=== PATIENT | female | born 1950 | race Caucasian/White ===

== ENCOUNTER → 2018-06-10 | Outpatient (CLI) | payer BC, MEDICARE ==
[~2018-06-10] MED LIST: ASPIR 8181 MG PO; ATORVASTATIN CA20 MG PO; BENEFIBER240 GM PO; CALCIUM CITRAT1 EAC3 PO; DITROPAN XL10 MG PO; HYDROCHLOROTHIA25 MG PO; LORATADINE10 M1 PO; MACROBID 100 M100 MG PO; OTC ALLERGY PO; PANTOPRAZOLE SO40 MG PO; UROCIT-K10 MEQ PO; UROCIT-K5 MEQ PO; VITAMIN D PO
--- NOTE | 2018-06-10 12:31 | Diagnostic Imaging Report ---
PROCEDURE:X-RAY ABDOMEN - KUB COMPARISON:None. INDICATIONS:CALCULUS OF KIDNEY FINDINGS: One view of the abdomen (AP supine). No dilated loops of bowel or abnormal air-fluid levels patterns. No free air underneath the diaphragm. Visualized portions of the lung bases are clear. At least 2 calcifications are projected over the lower pole of the right kidney, measuring up to 4 mm. A 4 mm calcification is projected over the left kidney. Pelvic phleboliths are identified. Five non-rib bearing lumbar type vertebral bodies identified. CONCLUSION: Small calcifications are projected over each kidney, measuring up to about 4 mm. Dictated by: Moose Burns M.D. on 06/10/2018 at 12:38 Electronically approved by: Moose Burns M.D. on 06/10/2018 at 12:38
== END ==
LOC: RAD 11:43
PROVIDERS: ATTEND Urology
DX: N20.0 Calculus of kidney (principal)
CPT/HCPCS: 74018

== ENCOUNTER → 2019-01-15 | Outpatient (CLI) | payer BC, MEDICARE ==
--- NOTE | 2019-01-15 14:58 | Diagnostic Imaging Report ---
Abdomen, 1 view. History: Renal calculus. Comparison: 06/10/2018. Findings: Two 3 mm calcific densities are projected over the lower pole of the right kidney without significant change. Calcified phleboliths in the pelvis laterally are unchanged in appearance. Air is scattered throughout nondilated small and large bowel. Cholecystectomy clips are present. There are no masses. The osseous structures are intact. IMPRESSION: Non-specific bowel gas pattern. No significant change. Signed by: Bao Self on 01/15/2019 2:54 PM
== END ==
LOC: RAD 13:55
DX: N20.0 Calculus of kidney (principal)
CPT/HCPCS: 74018

== ENCOUNTER → 2019-05-21 | Day surgery (SDC) | payer MEDICARE ==
[2019-05-17 16:50] LABS: BASOPHILS % 0.4 % (0.0-1.0); EOSINOPHILS # (AUTO) 0.1 (0.0-0.4); EOSINOPHILS % 1.3 % (0.0-6.0); HEMATOCRIT 39.9 % (34.2-44.1); HEMOGLOBIN 13.4 g/dL (12.0-16.0); LYMPHOCYTES # (AUTO) 1.1 (1.0-3.2); LYMPHOCYTES % 23.3 % (18.0-39.1); MEAN CORPUSCULAR HGB CONC 33.6 g/dL (31-35); MEAN CORPUSCULAR VOLUME 89.5 fL (81-99); MONOCYTES # (AUTO) 0.3 (0.2-0.8); MONOCYTES % 6.5 % (4.4-11.3); NEUTROPHILS # (AUTO) 3.3 (2.1-6.9); NEUTROPHILS % 68.3 % (38.7-80.0); PLATELET COUNT 151 x10e3/uL (140-360); RED BLOOD COUNT 4.46 x10e6/uL (3.6-5.1); RED CELL DISTRIBUTION WIDTH 12.3 % (11.7-14.4)
[~2019-05-21] MED LIST changes: +CALCIUM 500+D1 EACH PO; +FENTANYL CITRATE/PF 100MCG/2 ML INJ ONE; +HYOSCYAMINE 0.125 MG TAB ONE; +HYOSCYAMINE0.125 MG PO; +MIDAZOLAM HCL 2 MG/2 ML VIAL ONE; +PROPOFOL IV EMULSION 10 MG/ML 50 ML VIAL ONE; +VITAMIN D400 UNIT PO
--- OUTSIDE RECORDS SUMMARY | 2019-05-21 11:18 | XMS REPORT ---
Author Author [facility] Address Unknown Phone Unavailable Care Team Providers Care Charge Account Authorizer Name Role Phone SHEILA CONNER Unavailable Unavailable PITER KHAN Unavailable Unavailable OUMAR GONGORA Unavailable Unavailable DARIO CONNER Unavailable Unavailable Problems This patient has no known problems. Allergies, Adverse Reactions, Alerts This patient has no known allergies or adverse reactions. Medications This patient has no known medications. Results Test Description Test Time Test Comments Text Results Atomic Results Result Comments ABDOMEN-1VIEW (KU) 2019-01-15 14:50:00 [place] [address] Patient Name: JOHANNA LIZARRAGA MR #: [id number] : 1950 Age/Sex: 68/F Req #: [id number] Adm Physician: Ordered by: SHEILA CONNER MD Report #: [id number] Location: [facility] Room/Bed: Procedure: [id number] DX/ABDOMEN-1VIEW (KU) Exam Date: 01/15/19 Exam Time: 1400 REPORT STATUS: Signed Abdomen, 1 view. History: Renal calculus. Comparison: 06/10/2018. Findings: Two 3 mm calcific densities are projected over the lower pole of the right kidney without significant change. Calcified phleboliths in the pelvis laterally are unchanged in appearance. Air is scattered throughout nondilated small and large bowel. Cholecystectomy clips are present. There are no masses. The osseous structures are intact. IMPRESSION: Non-specific bowel gas pattern. No significant change. Signed by: Bao Self on 01/15/2019 2:54 PM Dictated By: BAO SELF MD 53 Transcribed By: FELISA on 01/15/191453 COPY TO: SHEILA CONNER MD ABDOMEN-1VIEW (KUB) 2018-06-10 12:38:00 [place] [address] Patient Name: JOHANNA LIZARRAGA MR #: [id number] : 1950 Age/Sex: 68/F Req #: [id number] [facility] Physician: Ordered by: PITER KHAN MD Report #: [id number] Location: [facility] Room/Bed: Procedure: [id number] DX/ABDOMEN-1VIEW (KUB) Exam Date: 06/10/18 Exam Time: 1206 REPORT STATUS: Signed PROCEDURE: X-RAY ABDOMEN - KUB COMPARISON: None. INDICATIONS: CALCULUS OF KIDNEY FINDINGS: One view of the abdomen (AP supine). No dilated loops of bowel or abnormal air-fluid levels patterns. No free air underneath the diaphragm. Visualized portions of the lung bases are clear. At least 2 calcifications are projected over the lower pole of the right kidney, measuring up to 4 mm. A 4 mm calcification is projected over the left kidney. Pelvic phleboliths are identified. Five non-rib bearing lumbar type vertebral bodies identified. CONCLUSION: Small calcifications are projected over each kidney, measuring up to about 4 mm. Dictated by: Ricki Burns M.D. on 06/10/2018 at 12:38 Electronically approved by: Ricki Burns M.D. on 06/10/2018 at 12:38 Dictated By: RICKI BURNS MD 1238 Transcribed By: ARELI on 06/10/18 1238 COPY TO: PITER KHAN MD MRI PELVIS WO [place] [address] Patient Name: JOHANNA LIZARRAGA MR #: [id number] : 1950 Age/Sex: 67/F Req #: [id number] Adm Physician: Ordered by: OUMAR GONGORA MD Report #: [id number] Location: MRI Room/Bed: Procedure: [id number] MRI/MRI PELVIS WO Exam Date: 09/01/17 Exam Time: 1505 REPORT STATUS: Signed TECHNIQUE: Magnetic resonance imaging of the PELVIS was performed WITHOUT injected contrast using standard departmental protocols. HISTORY: Rami fractures COMPARISON: August 23, 2017 FINDINGS: Incompletely healed fractures of the left inferior pubic ramus adjacent to the ischium, superior pubic ramus adjacent to the pubis, and left iliac bone adjacent to the sacroiliac joint. Decreased adjacent soft tissue edema. No new fracture. Mild degenerative arthrosis of the hip joints with probable bilateral anterior labral detachment. Partial-thickness cartilage loss. Transitional anatomy of L5 with pseudoarthrosis of the right transverse process. The muscle bulk is symmetric. The gluteal tendon insertions on the greater trochanter are intact. Iliopsoas tendons are intact. Mild bilateral hamstring tendinosis. IMPRESSION: Incomplete healing of the left superior and inferior pubic ramus and left iliac bone with mildly decreased edema. Signed by: Dr. Haleigh Vazquez M.D. on 09/02/2017 8:12 AM Dictated By: HALEIGH VAZQUEZ MD 1 Transcribed By: FELISA on 09/02/17811 COPY TO: OUMAR GONGORA MD MRI HIP LEFT WO [facility] [address] [place] [address] Patient Name: JOHANNA LIZARRAGA MR #: [id number] : 1950 Age/Sex: 67/F Req #: [id number] Adm Physician: Ordered by: OUMAR GONGORA MD Report #: [id number] Location: MRI Room/Bed: Procedure: [id number] MRI/MRI HIP LEFT WO Exam Date: 08/23/17 Exam Time: 1300 REPORT STATUS: Signed TECHNIQUE: Magnetic resonance imaging of the LEFT HIP was performed WITHOUT injected contrast. Images available for interpretation on August 27, 2017 at approximately 1315. HISTORY: Left pubic ramus fracture, fell COMPARISON: Left hip radiographs August 12, 2017 FINDINGS: Bone: No focal or infiltrative bone marrow replacing abnormality. Incompletely healed fracture with associated bone marrow edema in the parasymphyseal region of the left pubic bone extending into the adjacent superior pubic ramus. An incompletely healed fracture with associated bone marrow edema near the junction of the left ischium/inferior pubic ramus, anterior to the hamstring origins. Focal bone marrow edema with irregular internal linear signal of the left iliac bone adjacent to the superior aspect of the left sacroiliac joint. Femoroacetabular Joint: Acetabular labrum: Mild degenerative tearing of the anterosuperior labrum with probable focal detachment. Articular Cartilage: Low-grade erosion of the anterior weightbearing surface. Muscle and tendons: The visualized tendons appear intact. Mild edema within the left abductor muscles, compatible with contusion. Soft tissues: Otherwise, unremarkable. IMPRESSION: 1. Three subacute, incompletely healed fractures, including: the parasymphyseal region of the left pubis, near the junction of the left ischium and inferior pubic ramus, and the left iliac bone adjacent to the superior aspect of the sacroiliac joint. 2. Mild degenerative changes of the femoral acetabular joint, including the labrum. Signed by: Dr. Hitesh Black M.D. on 08/27/2017 1:36 PM Dictated By: HITESH BLACK DO 35 Transcribed By: FELISA on 08/27/171335 COPY TO: OUMAR GONGORA MD HIP LEFT 2-3 VW (+/- PELVIS) [place] [address] Patient Name: JOHANNA LIZARRAGA MR #: [id number] : 1950 Age/Sex: 67/F Req #: [id number] Adm Physician: Ordered by: SHEILA CONNER MD Report #: [id number] Location: [facility] Room/Bed: Procedure: [id number] DX/HIP LEFT 2-3 VW (+/- PELVIS) Exam Date: Exam Time: REPORT STATUS: Signed PROCEDURE: HIP LEFT 2-3 VW (+/- PELVIS) COMPARISON: None. INDICATIONS: LEFT HIP PAIN FROM FALL FINDINGS: BONES: Normal mineralization. No acute displaced fracture or dislocation. Joint spaces are within normal limits. Subtle lucent lines through the medial left superior pubic ramus and inferior pubic ramus. SOFT TISSUES: Negative. OTHER: Negative. CONCLUSION: Nondisplaced fractures of the left superior and inferior pubic rami. No acute fracture or dislocation of the left hip. Dictated by: Deep Peterson M.D. on 08/12/2017 at 11:55 Electronically approved by: Deep Peterson M.D. on 08/12/2017 at 11:55 Dictated By: DEEP PETERSON MD 1155 Transcribed By: ARELI on 08/12/17 1155 COPY TO: SHEILA CONNER MD CHEST 2 VIEWS [place] [address] Patient Name: JOHANNA LIZARRAGA MR #: [id number] : 1950 Age/Sex: 67/F Req #: [id number] Adm Physician: Ordered by: LEANDRO DRUMMOND MD Report #: [id number] Location: OR Room/Bed: Procedure: [id number] DX/CHEST 2 VIEWS Exam Date: 06/30/17 Exam Time: 1300 REPORT STATUS: Signed PROCEDURE: X-RAY CHEST, TWO VIEWS COMPARISON: 09/11/16. INDICATIONS: PRE OPERATIVE CHEST X-RAY FOR EGD FINDINGS: The lungs are well- inflated and without consolidation, pleural effusion, or pneumothorax. Stable tortuosity and atherosclerotic calcification of the thoracic aorta. Normal heart size and pulmonary vasculature. No acute osseous abnormalities. Surgical hardware within the right humerus partially visualized. 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 CONCLUSION: No acute cardiopulmonary abnormality. Dictated by: Yris Eaton M.D. on 06/30/2017 at 13:57 Electronically approved by: Yris Eaton M.D. on 06/30/2017 at 13:57 Dictated By: YRIS EATON MD 1357 Transcribed By: ARELI on 06/30/17 1357 COPY TO: LEANDRO DRUMMOND MD ABDOMEN-1VIEW (KUB) [place] [address] Patient Name: JOHANNA LIZARRAGA MR #: [id number] : 1950 Age/Sex: 67/F Req #: [id number] Adm Physician: Ordered by: PITER KHAN MD Report #: [id number] Location: [facility] Room/Bed: Procedure: [id number] DX/ABDOMEN-1VIEW (KUB) Exam Date: 06/30/17 Exam Time: 1100 REPORT STATUS: Signed PROCEDURE: X-RAY ABDOMEN - KUB COMPARISON: 01/29/2017. INDICATIONS: CALCULUS OF KIDNEY FINDINGS: Weekend for differences in technique there has been no appreciable interval change in bilateral renal calculi. Left lower pole renal calculus measures 7 mm in diameter. Calcifications projecting over the right interpolar and lower pole regions measure up to 4 mm in diameter. Pelvic phleboliths unchanged. No additional calcifications projecting over the expected ureteral courses. Bowel gas pattern is nonobstructive. Regional skeletal structures intact with transitional lumbosacral anatomy between L5 and S1 again noted. Right upper quadrant surgical clips are unchanged.. CONCLUSION: Bilateral nephrolithiasis grossly unchanged relative to 01/29/2017. Dictated by: Yris Eaton M.D. on 06/30/2017 at 11:55 Electronically approved by: Yris Eaton M.D. on 06/30/2017 at 11:55 Dictated By: YRIS EATON MD 1158 Transcribed By: ARELI on 06/30/17 2837 COPY TO: PITER KHAN MD
[2019-05-21 14:39] LABS: WBC,FECAL (FECAL LACTOFERRIN) POSITIVE (NEGATIVE)
[2019-05-21 15:08] VITALS: BP 125/75
--- NOTE | 2019-05-21 16:12 | Operative Report ---
DATE OF PROCEDURE: 05/21/2019 SURGEON: Chaitanya Barahona MD PROCEDURES: 1. Esophagogastroduodenoscopy with biopsies. 2. Colonoscopy with biopsies. INDICATION FOR EGD: Dyspepsia. INDICATIONS FOR COLONOSCOPY: Surveillance colonoscopy, personal history of colon polyps, and chronic diarrhea. MEDICATIONS: The patient was done under MAC, please see anesthesiologist's note. PROCEDURE IN DETAIL: With the patient in left lateral decubitus position, a flexible fiberoptic Olympus gastroscope was introduced into the esophagus under direct visualization without any difficulty. There was some patchy erythema noted in the distal esophagus. The mucosa overlying the GE junction appeared somewhat raised and that was biopsied. The scope was then advanced with ease into the stomach. Mucosa overlying the antrum and the body revealed some patchy erythema and low-grade to moderate edema, and biopsies were obtained and sent to stain for H pylori. Minute hyperplastic appearing polyp was noted in the body of the stomach and that was excised with the cold biopsy forceps. The pylorus was of normal contour and shape, it was intubated with ease and the scope was advanced all the way to the second portion of the duodenum. Biopsies were obtained from the second portion and the duodenal bulb to rule out sprue. The scope was then withdrawn back into the stomach and retroflexed. Mucosa overlying the fundus and the cardia appeared to be within normal limits. The scope was then straightened out, it was subsequently withdrawn. The patient tolerated the procedure well. IMPRESSION: 1. Distal esophagitis, mild. 2. Gastroesophageal junction somewhat raised, biopsied. 3. Gastritis, biopsied. Biopsies sent to stain for Helicobacter pylori. 4. Gastric polyp, body, excised with the cold biopsy forceps. 5. Rule out sprue. PLAN: Follow up histology. Protonix 40 mg one p.o. q.a.m. a.c. The patient was then turned around and after adequate lubrication of the anal canal, a flexible fiberoptic Olympus colonoscope was inserted into the rectum with ease and advanced all the way to the cecum. Mucosa overlying the cecum appeared to be within normal limits. The ileocecal valve was intubated and the scope was advanced into the terminal ileum. Biopsies were obtained. The scope was then withdrawn back into the colon. It was then withdrawn slowly. Mucosa overlying the ascending and the transverse appeared to be within normal limits. Mild inflammatory changes were noted in the left colon and the rectum and random biopsies were obtained. The scope was then retroflexed into the distal rectum and small internal hemorrhoids were noted, none of which was actively bleeding. The scope was then straightened out, it was subsequently withdrawn after securing an adequate stool specimen that was sent for the appropriate stool studies. The patient tolerated the procedure well. IMPRESSION: 1. Mild patchy left-sided colitis, biopsies obtained. 2. Proctitis, mild, biopsied. 3. Internal hemorrhoids, none actively bleeding. PLAN: Follow up histology. Follow up stool studies. Initiate Bentyl 10 mg one p.o. t.i.d. and Visbiome one p.o. b.i.d. Chaitanya Barahona MD [facility] [place]/MODL /[id number] cc: Earl Barahona MD
[2019-05-22 14:08] LABS: C DIFFICILE TOXIN A&B AMP PROB NEGATIVE (NEGATIVE)
== END | disposition home or self-care (01) ==
LOC: OR 11:16
PROVIDERS: ATTEND Internal Medicine Gastroenterology
DX: K21.0 Gastro-esophageal reflux disease with esophagitis (principal); K31.7 Polyp of stomach and duodenum; K29.50 Unspecified chronic gastritis without bleeding; K51.50 Left sided colitis without complications; K29.80 Duodenitis without bleeding; K62.89 Other specified diseases of anus and rectum; K64.8 Other hemorrhoids; R00.1 Bradycardia, unspecified; Z88.2 Allergy status to sulfonamides; Z01.810 Encounter for preprocedural cardiovascular examination; Z01.812 Encounter for preprocedural laboratory examination; Z68.28 Body mass index [BMI] 28.0-28.9, adult
CPT/HCPCS: 36415; 43239; 45380; 83630; 83993; 85025; 87045; 87177; 87328; 87493; 88305; 88312; 93005; J2250; J2704; J3010; 45378

== ENCOUNTER → 2019-08-12 | Outpatient (CLI) | payer MEDICARE ==
[~2019-08-12] MED LIST changes: +ALIGN4 MG PO; -FENTANYL CITRATE/PF 100MCG/2 ML INJ ONE; -HYOSCYAMINE 0.125 MG TAB ONE; -MIDAZOLAM HCL 2 MG/2 ML VIAL ONE; -PROPOFOL IV EMULSION 10 MG/ML 50 ML VIAL ONE
--- NOTE | 2019-08-12 15:52 | Diagnostic Imaging Report ---
Exam: KUB - 2 views Indication: Renal calculi Comparison: KUB of 07/30/2019, 01/15/2019 Findings: Right internal nephroureteral stent in place. Compared to the prior study, the proximal loop is now fully formed. 3 mm right lower pole renal calculus. Cluster of calculi in the left renal lower pole measure up to 8 mm total diameter. Nonobstructive bowel gas pattern. No free air. Status post cholecystectomy. Degenerative changes of the visualized spine and both hip joints. Phleboliths within the pelvis. Impression: Right internal nephroureteral stent in place, now with proximal loop fully formed. Right and left lower pole renal calculi as above. Signed by: Hans Izquierdo MD on 08/12/2019 3:49 PM
== END ==
LOC: RAD 14:52
PROVIDERS: ATTEND Urology
DX: N20.0 Calculus of kidney (principal)
CPT/HCPCS: 74018

== ENCOUNTER → 2021-11-20 | Outpatient (CLI) | payer MEDICARE | LOC: RAD 13:48 | DX: M54.50 Low back pain, unspecified (principal) | CPT/HCPCS: 72110 ==

== ENCOUNTER → 2023-03-11 | Day surgery (SDC) | payer MEDICARE ==
[2023-03-07 12:44] LABS: BASOPHILS % 0.7 % (0.0-1.0); EOSINOPHILS # (AUTO) 0.2 (0.0-0.4); EOSINOPHILS % 3.8 % (0.0-6.0); HEMOGLOBIN 12.7 g/dL (12.0-16.0); LYMPHOCYTES # (AUTO) 1.2 (1.0-3.2); LYMPHOCYTES % 22.5 % (18.0-39.1); MEAN CORPUSCULAR HEMOGLOBIN 28.9 pg (28-32); MEAN CORPUSCULAR HGB CONC 32.6 g/dL (31-35); MEAN CORPUSCULAR VOLUME 88.6 fL (81-99); MONOCYTES # (AUTO) 0.3 (0.2-0.8); MONOCYTES % 5.3 % (4.4-11.3); NEUTROPHILS # (AUTO) 3.7 (2.1-6.9); NEUTROPHILS % 67.5 % (38.7-80.0); PLATELET COUNT 164 x10e3/uL (140-360); RED CELL DISTRIBUTION WIDTH 13.6 % (11.7-14.4)
[2023-03-07 13:03] LABS: ALBUMIN 3.9 g/dL (3.5-5.0); ALBUMIN/GLOBULIN RATIO 1.3 (0.8-2.0); ANION GAP 14.4 mmol/L (8-16); CALCIUM 9.4 mg/dL (8.4-10.2); CREATININE, SERUM 0.95 mg/dL (0.57-1.11); POTASSIUM 3.4 mmol/L (3.5-5.1)
[~2023-03-11] MED LIST changes: +AREDS PO; +B COMPLEX WITH1 EACH PO; +DEXAMETHASONE SOD PHOS INJ 4 MG/ML SDV ONE; +EPHEDRINE SULFATE INJ 50 MG/ML VIAL ONE; +FENTANYL CITRATE/PF 100MCG/2 ML INJ ONE; +FOLIC ACID0.4 MG PO; +GENTAMICIN 80MG/NS 100 ML 200 ML IV ONE; +IOPAMIDOL 610MG/1ML 300 MG/ML VIAL IV ONE; +LACTATED RINGER'S 1,000 ML ONE; +LIDOCAINE HCL 2% LOCAL INJ 5 ML SDV VIAL INJ ONE; +LOSARTAN POTASS25 MG PO; +MECLIZINE HCL12.5 MG PO; +METHENAMINE HIPP1 GM PO; +ONDANSETRON HCL INJ 2MG/ML 2ML 2 MG/ML VIAL ONE; +POVIDONE IODINE 0.05% 0.05 % ML PO ONE; +PREVAGEN PO; +PROPOFOL IV EMULSION 10 MG/ML 20 ML VIAL ONE; +SEVOFLURANE INHAL SOLN 250 ML PEN BTL ONE; +VITAMIN D325 MCG PO
[2023-03-11 09:00] VITALS: BP 121/67; PULSE 76; RESP 18; O2SAT 98
== END | disposition home or self-care (01) ==
LOC: OR 05:15
PROVIDERS: ATTEND Urology
DX: N13.2 Hydronephrosis with renal and ureteral calculous obstruction (principal); N39.0 Urinary tract infection, site not specified; Z43.6 Encounter for attention to other artificial openings of urinary tract; N81.10 Cystocele, unspecified; N81.6 Rectocele; N95.2 Postmenopausal atrophic vaginitis; I10 Essential (primary) hypertension; E78.5 Hyperlipidemia, unspecified; Z01.810 Encounter for preprocedural cardiovascular examination; Z01.812 Encounter for preprocedural laboratory examination; Z01.818 Encounter for other preprocedural examination; Z79.899 Other long term (current) drug therapy
CPT/HCPCS: 36415; 50389; 50590; 52332; 71046; 74018; 80053; 83970; 84550; 85025; 87086; 88300; 93005; C1758; C1874; J1100; J1580; J2001; J2405; J2704; J3010; J7121; Q9967

== ENCOUNTER → 2023-04-02 | Day surgery (SDC) | payer MEDICARE ==
[2023-04-01 14:41] LABS: BASOPHILS % 0.5 % (0.0-1.0); EOSINOPHILS # (AUTO) 0.2 (0.0-0.4); EOSINOPHILS % 3.1 % (0.0-6.0); HEMATOCRIT 37.9 % (34.2-44.1); HEMOGLOBIN 12.3 g/dL (12.0-16.0); MEAN CORPUSCULAR HEMOGLOBIN 29.2 pg (28-32); MEAN CORPUSCULAR HGB CONC 32.5 g/dL (31-35); MONOCYTES # (AUTO) 0.4 (0.2-0.8); MONOCYTES % 6.3 % (4.4-11.3); NEUTROPHILS # (AUTO) 4.3 (2.1-6.9); NEUTROPHILS % 72.9 % (38.7-80.0); PLATELET COUNT 171 x10e3/uL (140-360); RED BLOOD COUNT 4.21 x10e6/uL (3.6-5.1); RED CELL DISTRIBUTION WIDTH 13.3 % (11.7-14.4)
[2023-04-01 14:57] LABS: ANION GAP 13.7 mmol/L (8-16); CALCIUM 9.4 mg/dL (8.4-10.2); CREATININE, SERUM 1.02 mg/dL (0.57-1.11); POTASSIUM 3.7 mmol/L (3.5-5.1)
[~2023-04-02] MED LIST changes: +ACETAMINOPHEN 1000 MG/100 ML 100 ML IV ONE
[2023-04-02 12:23] VITALS: TEMP 98.2
[2023-04-02 13:00] VITALS: BP 117/61; PULSE 76; RESP 16; O2SAT 96
== END | disposition home or self-care (01) ==
LOC: OR 08:47
PROVIDERS: ATTEND Urology
DX: N20.1 Calculus of ureter (principal); Z46.6 Encounter for fitting and adjustment of urinary device; N28.89 Other specified disorders of kidney and ureter; N13.30 Unspecified hydronephrosis; N81.10 Cystocele, unspecified; N81.6 Rectocele; N95.2 Postmenopausal atrophic vaginitis; I10 Essential (primary) hypertension; E78.5 Hyperlipidemia, unspecified; E66.01 Morbid (severe) obesity due to excess calories; F03.90 Unspecified dementia, unspecified severity, without behavioral disturbance, psychotic disturbance, mood disturbance, and anxiety; Z01.812 Encounter for preprocedural laboratory examination; Z01.818 Encounter for other preprocedural examination; Z79.899 Other long term (current) drug therapy
CPT/HCPCS: 36415; 52352; 74018; 74420; 80048; 84550; 85025; 87086; 88300; C1769; J0131; J1100; J1580; J2001; J2405; J2704; J3010; J7121; Q9967

== ENCOUNTER → 2024-09-02 | Outpatient (REF) | payer MEDICARE ==
[~2024-09-02] MED LIST changes: -ACETAMINOPHEN 1000 MG/100 ML 100 ML IV ONE; -DEXAMETHASONE SOD PHOS INJ 4 MG/ML SDV ONE; -EPHEDRINE SULFATE INJ 50 MG/ML VIAL ONE; -FENTANYL CITRATE/PF 100MCG/2 ML INJ ONE; -GENTAMICIN 80MG/NS 100 ML 200 ML IV ONE; -IOPAMIDOL 610MG/1ML 300 MG/ML VIAL IV ONE; -LACTATED RINGER'S 1,000 ML ONE; -LIDOCAINE HCL 2% LOCAL INJ 5 ML SDV VIAL INJ ONE; -ONDANSETRON HCL INJ 2MG/ML 2ML 2 MG/ML VIAL ONE; -POVIDONE IODINE 0.05% 0.05 % ML PO ONE; -PROPOFOL IV EMULSION 10 MG/ML 20 ML VIAL ONE; -SEVOFLURANE INHAL SOLN 250 ML PEN BTL ONE
== END ==
LOC: MRI 08:56
PROVIDERS: ATTEND Family Medicine Adult Medicine
DX: R01.1 Cardiac murmur, unspecified (principal); R42 Dizziness and giddiness
CPT/HCPCS: 70551; 93306; 93880

== ENCOUNTER 2024-10-14 13:41 | Inpatient (IN) | payer MEDICARE ==
[2024-10-14] VITALS (26 sets, daily range): BP systolic 95–162; BP diastolic 47–124; PULSE 75–91; RESP 16–31; TEMP 96.2–98.5; O2SAT 93–100
[~2024-10-14] VITALS: Ht 165.1 cm; Wt 54.1 kg
[2024-10-14] MEDS ORDERED: SODIUM CHLORIDE 0.9% 1000ML 1,000 ML ONE (13:49)
[2024-10-14 14:17] LABS: BASOPHILS # (AUTO) 0.1 (0.0-0.1); BASOPHILS % 0.3 % (0.0-1.0); HEMATOCRIT 60.2 % (34.2-44.1); HEMOGLOBIN 18.1 g/dL (12.0-16.0); LYMPHOCYTES # (AUTO) 2.2 (1.0-3.2); LYMPHOCYTES % 14.9 % (18.0-39.1); MEAN CORPUSCULAR HEMOGLOBIN 30.5 pg (28-32); MEAN CORPUSCULAR HGB CONC 30.1 g/dL (31-35); MEAN CORPUSCULAR VOLUME 101.3 fL (81-99); MONOCYTES # (AUTO) 0.8 (0.2-0.8); MONOCYTES % 5.5 % (4.4-11.3); NEUTROPHILS # (AUTO) 11.5 (2.1-6.9); NEUTROPHILS % 77.2 % (38.7-80.0); PLATELET COUNT 218 x10e3/uL (140-360); RED BLOOD COUNT 5.94 x10e6/uL (3.6-5.1); RED CELL DISTRIBUTION WIDTH 17.8 % (11.7-14.4)
[2024-10-14] MEDS: SODIUM CHLORIDE 0.9% 500ML 500 ML IV ONE (14:21)
[2024-10-14 14:26] LABS: INR 1.24; PROTHROMBIN TIME 16.3 seconds (11.9-14.5)
[2024-10-14 14:27] LABS: PARTIAL THROMBOPLASTIN TIME 26.8 seconds (23.8-35.5)
[2024-10-14 14:37] LABS: ALBUMIN 4.2 g/dL (3.5-5.0); ALBUMIN/GLOBULIN RATIO 0.9 (0.8-2.0); ANION GAP 39.9 mmol/L (8-16); BILIRUBIN,TOTAL 2.7 mg/dL (0.2-1.2); CALCIUM 11.7 mg/dL (8.4-10.2); CREATININE, SERUM 3.44 mg/dL (0.57-1.11); MAGNESIUM 3.9 MG/DL (1.3-2.1); POTASSIUM 3.9 mmol/L (3.5-5.1); TOTAL PROTEIN 8.8 g/dL (6.5-8.1)
[2024-10-14 14:44] LABS: B-TYPE NATRIURETIC PEPTIDE2 117.9 pg/mL (0-100)
[2024-10-14 14:47] LABS: TROPONIN I 0.474 ng/mL (0-0.300)
[2024-10-14] MEDS: SODIUM CHLORIDE 0.9% 1000ML 1,000 ML IV STA ×3 (14:47→16:13)
[2024-10-14] MEDS: MEROPENEM 1 GM in SODIUM CHLORIDE 0.9% 100 ML IV ONE (14:49)
[2024-10-14 14:55] LABS: CLARITY,URINE TURBID (CLEAR); COLOR,URINE YELLOW (YELLOW)
[2024-10-14] MEDS: Vancomycin IV 1 GM in SODIUM CHLORIDE 0.9% 250ML 250 ML IV ONE (14:56)
[2024-10-14 15:08] LABS: AMMONIA 83 UG/DL (31-123)
[2024-10-14 15:09] LABS: LEUKOCYTE ESTERASE ,URINE LARGE (NEGATIVE); NITRITE,URINE NEGATIVE (NEGATIVE); PROTEIN,URINE DIPSTICK >=300 (NEGATIVE); URINE UROBILINOGEN 0.2 mg/dL (0.2 - 1)
[2024-10-14 15:10] LABS: BILIRUBIN,URINE MODERATE (NEGATIVE); GLUCOSE, URINE NEGATIVE (NEGATIVE); KETONES,URINE NEGATIVE (NEGATIVE); PH,URINE 8 (5 - 7)
[2024-10-14 15:13] LABS: AMORPHOUS SEDIMENT,URINE MANY (FEW); BACTERIA,URINE MODERATE /HPF; RBC,URINE >50 /HPF (0-5); WBC,URINE (MAN) >50 /HPF (0-5)
[2024-10-14 15:23] LABS: CORONAVIRUS COVID-19 AG NEGATIVE (NEGATIVE); INFLUENZA A AG NEGATIVE (NEGATIVE); INFLUENZA B AG NEGATIVE (NEGATIVE)
[2024-10-14 15:25] LABS: ABG PCO2 11 mmHg (35-45); ABG PH 7.23 (7.35-7.45)
[2024-10-14 15:26] LABS: ABG HCO3 5 mmol/L (22-26); ABG PO2 100 mmHg (80-105); ABG TCO2 5
[2024-10-14] MEDS ORDERED: ONDANSETRON HCL INJ 2MG/ML 2ML 2 MG/ML VIAL IV PRN (16:30)
[2024-10-14] MEDS: SODIUM BICARBONATE 8.4% VIAL 100 ML in DEXTROSE 5% 1,000 ML IV SCH (18:38)
[2024-10-14 22:50] LABS: TROPONIN I 0.357 ng/mL (0-0.300)
[2024-10-15] VITALS (80 sets, daily range): BP systolic 73–138; BP diastolic 48–117; PULSE 52–110; RESP 0–43; TEMP 97.2–98.4; O2SAT 95–100
[2024-10-15 06:37] LABS: BASOPHILS % 0.2 % (0.0-1.0); EOSINOPHILS % 0.1 % (0.0-6.0); HEMATOCRIT 37.1 % (34.2-44.1); HEMOGLOBIN 12.4 g/dL (12.0-16.0); LYMPHOCYTES # (AUTO) 1.2 (1.0-3.2); LYMPHOCYTES % 8.1 % (18.0-39.1); MEAN CORPUSCULAR HEMOGLOBIN 30.6 pg (28-32); MEAN CORPUSCULAR HGB CONC 33.4 g/dL (31-35); MEAN CORPUSCULAR VOLUME 91.6 fL (81-99); MONOCYTES # (AUTO) 0.5 (0.2-0.8); MONOCYTES % 3.6 % (4.4-11.3); NEUTROPHILS # (AUTO) 12.7 (2.1-6.9); NEUTROPHILS % 87.2 % (38.7-80.0); PLATELET COUNT 127 x10e3/uL (140-360); RED BLOOD COUNT 4.05 x10e6/uL (3.6-5.1); RED CELL DISTRIBUTION WIDTH 16.4 % (11.7-14.4); WHITE BLOOD COUNT 14.56 x10e3/uL (4.8-10.8)
[2024-10-15 06:50] LABS: ALBUMIN 2.5 g/dL (3.5-5.0); ANION GAP 18.8 mmol/L (8-16); BILIRUBIN,TOTAL 1.4 mg/dL (0.2-1.2); CALCIUM 8.2 mg/dL (8.4-10.2); CREATININE, SERUM 2.09 mg/dL (0.57-1.11); MAGNESIUM 2.2 MG/DL (1.3-2.1); TOTAL PROTEIN 4.9 g/dL (6.5-8.1)
[2024-10-15 07:02] LABS: POTASSIUM 2.8 mmol/L (3.5-5.1)
[2024-10-15 07:03] LABS: TROPONIN I 0.453 ng/mL (0-0.300)
[2024-10-15] MEDS: POTASSIUM CHLORIDE 20MEQ/100ML 100 ML IV SCH ×2 (07:44→18:02)
[2024-10-15] MEDS: SODIUM BICARBONATE 8.4% SYRING 50 ML in DEXTROSE 5% 1,000 ML IV SCH (08:11)
[2024-10-15] MEDS: FAMOTIDINE 20 MG/2 ML VIAL IV SCH (09:48)
[2024-10-15] MEDS ORDERED: HYDRALAZINE HCL 20 MG/ML VIAL IV PRN (14:30)
[2024-10-15] MEDS ORDERED: LIDOCAINE 4% PATCH TP PRN (14:30)
[2024-10-15] MEDS ORDERED: DOCUSATE SODIUM 100 MG CAP PO PRN (14:30)
[2024-10-15] MEDS ORDERED: SIMETHICONE 80 MG CHEW PO PRN (14:30)
[2024-10-15] MEDS ORDERED: DEXTROSE 50% SYRINGE 50 ML IV PRN (14:30)
[2024-10-15] MEDS ORDERED: ALBUTEROL/IPRATROPIUM 3 ML NEB NEB PRN (14:30)
[2024-10-15] MEDS ORDERED: BENZONATATE 100 MG CAP PO PRN (14:30)
[2024-10-15] MEDS ORDERED: DIPHENHYDRAMINE HCL 25 MG CAP PO PRN (14:30)
[2024-10-15] MEDS ORDERED: SODIUM CHLORIDE 0.9% 1000ML 1,000 ML IV ONE (16:00)
[2024-10-15] MEDS: ENOXAPARIN SOD INJ 40 MG/0.4 ML SYR SC SCH (16:34)
[2024-10-15] MEDS: KCL 20 MEQ PACKET/ ORAL SOLN PO ONE (16:34)
[2024-10-15 17:21] LABS: ANION GAP 18.9 mmol/L (8-16); CREATININE, SERUM 1.9 mg/dL (0.57-1.11)
[2024-10-15 17:25] LABS: POTASSIUM 2.9 mmol/L (3.5-5.1)
[2024-10-15] MEDS: MELATONIN 5 MG TABLET PO PRN (20:50)
[2024-10-16] VITALS (36 sets, daily range): BP systolic 87–144; BP diastolic 62–87; PULSE 71–89; RESP 8–24; TEMP 97–98.2; O2SAT 96–100
[2024-10-16 06:47] LABS: BASOPHILS % 0.1 % (0.0-1.0); EOSINOPHILS % 0.2 % (0.0-6.0); HEMATOCRIT 34.6 % (34.2-44.1); HEMOGLOBIN 11.3 g/dL (12.0-16.0); LYMPHOCYTES # (AUTO) 1.6 (1.0-3.2); LYMPHOCYTES % 16.3 % (18.0-39.1); MEAN CORPUSCULAR HEMOGLOBIN 30.1 pg (28-32); MEAN CORPUSCULAR HGB CONC 32.7 g/dL (31-35); MONOCYTES # (AUTO) 0.3 (0.2-0.8); MONOCYTES % 2.8 % (4.4-11.3); NEUTROPHILS # (AUTO) 7.7 (2.1-6.9); NEUTROPHILS % 79.8 % (38.7-80.0); PLATELET COUNT 76 x10e3/uL (140-360); RED BLOOD COUNT 3.76 x10e6/uL (3.6-5.1); RED CELL DISTRIBUTION WIDTH 16.9 % (11.7-14.4); WHITE BLOOD COUNT 9.65 x10e3/uL (4.8-10.8)
[2024-10-16 07:20] LABS: ALBUMIN 2.4 g/dL (3.5-5.0); ALBUMIN/GLOBULIN RATIO 1.1 (0.8-2.0); ANION GAP 14.4 mmol/L (8-16); CALCIUM 8.1 mg/dL (8.4-10.2); CREATININE, SERUM 1.41 mg/dL (0.57-1.11); TOTAL PROTEIN 4.5 g/dL (6.5-8.1)
[2024-10-16 07:24] LABS: POTASSIUM 3.4 mmol/L (3.5-5.1)
[2024-10-16] MEDS: PANTOPRAZOLE SOD 40 MG TABEC PO SCH (07:30)
[2024-10-16] MEDS: POTASSIUM CHLORIDE 20MEQ/100ML 100 ML IV SCH (07:43)
[2024-10-16 08:32] LABS: ABG HCO3 5 mmol/L (22-26); ABG PCO2 11 mmHg (35-45); ABG PH 7.23 (7.35-7.45); ABG PO2 146 mmHg (80-105); ABG TCO2 < 5
[2024-10-16] MEDS: DEXTROSE 5% 1,000 ML IV SCH (09:30)
[2024-10-16] MEDS: KCL 20 MEQ PACKET/ ORAL SOLN PO SCH (09:31)
[2024-10-16] MEDS: ENOXAPARIN SOD INJ 40 MG/0.4 ML SYR SC SCH (16:34)
[2024-10-17] VITALS (18 sets, daily range): BP systolic 104–122; BP diastolic 62–75; PULSE 75–85; RESP 9–23; TEMP 97.7–98.7; O2SAT 100
[2024-10-17 06:16] LABS: BASOPHILS % 0.1 % (0.0-1.0); EOSINOPHILS # (AUTO) 0.1 (0.0-0.4); EOSINOPHILS % 0.8 % (0.0-6.0); HEMATOCRIT 39.8 % (34.2-44.1); HEMOGLOBIN 12.3 g/dL (12.0-16.0); LYMPHOCYTES # (AUTO) 1.6 (1.0-3.2); LYMPHOCYTES % 18.9 % (18.0-39.1); MEAN CORPUSCULAR HEMOGLOBIN 30.4 pg (28-32); MEAN CORPUSCULAR HGB CONC 30.9 g/dL (31-35); MEAN CORPUSCULAR VOLUME 98.5 fL (81-99); MONOCYTES # (AUTO) 0.3 (0.2-0.8); NEUTROPHILS # (AUTO) 6.3 (2.1-6.9); NEUTROPHILS % 75.4 % (38.7-80.0); RED BLOOD COUNT 4.04 x10e6/uL (3.6-5.1); RED CELL DISTRIBUTION WIDTH 16.7 % (11.7-14.4); WHITE BLOOD COUNT 8.42 x10e3/uL (4.8-10.8)
[2024-10-17 06:20] LABS: PLATELET COUNT 68 x10e3/uL (140-360)
[2024-10-17 06:31] LABS: ALBUMIN 2.6 g/dL (3.5-5.0); ALBUMIN/GLOBULIN RATIO 1.1 (0.8-2.0); ANION GAP 14.8 mmol/L (8-16); BILIRUBIN,TOTAL 1.3 mg/dL (0.2-1.2); CALCIUM 8.4 mg/dL (8.4-10.2); CREATININE, SERUM 1.03 mg/dL (0.57-1.11); POTASSIUM 3.8 mmol/L (3.5-5.1)
[2024-10-18] VITALS (11 sets, daily range): BP systolic 95–126; BP diastolic 62–73; PULSE 72–84; RESP 16–24; TEMP 97.5–97.9; O2SAT 100
[2024-10-18 06:48] LABS: BASOPHILS % 0.1 % (0.0-1.0); EOSINOPHILS # (AUTO) 0.1 (0.0-0.4); EOSINOPHILS % 1.2 % (0.0-6.0); HEMATOCRIT 38.9 % (34.2-44.1); HEMOGLOBIN 12.7 g/dL (12.0-16.0); LYMPHOCYTES # (AUTO) 1.1 (1.0-3.2); MEAN CORPUSCULAR HEMOGLOBIN 30.6 pg (28-32); MEAN CORPUSCULAR HGB CONC 32.6 g/dL (31-35); MEAN CORPUSCULAR VOLUME 93.7 fL (81-99); MONOCYTES # (AUTO) 0.2 (0.2-0.8); NEUTROPHILS # (AUTO) 5.2 (2.1-6.9); PLATELET COUNT 58 x10e3/uL (140-360); RED BLOOD COUNT 4.15 x10e6/uL (3.6-5.1); RED CELL DISTRIBUTION WIDTH 16.3 % (11.7-14.4); WHITE BLOOD COUNT 6.69 x10e3/uL (4.8-10.8)
[2024-10-18 07:11] LABS: ALBUMIN 2.6 g/dL (3.5-5.0); ANION GAP 15.7 mmol/L (8-16); BILIRUBIN,TOTAL 1.5 mg/dL (0.2-1.2); CALCIUM 8.4 mg/dL (8.4-10.2); CREATININE, SERUM 0.81 mg/dL (0.57-1.11); POTASSIUM 3.7 mmol/L (3.5-5.1); TOTAL PROTEIN 5.1 g/dL (6.5-8.1)
[2024-10-19] VITALS (14 sets, daily range): BP systolic 89–123; BP diastolic 44–74; PULSE 69–95; RESP 14–21; TEMP 97.8–98.6; O2SAT 97–100
[2024-10-19 06:44] LABS: BASOPHILS % 0.2 % (0.0-1.0); EOSINOPHILS # (AUTO) 0.1 (0.0-0.4); EOSINOPHILS % 2.2 % (0.0-6.0); HEMATOCRIT 43.2 % (34.2-44.1); HEMOGLOBIN 13.2 g/dL (12.0-16.0); LYMPHOCYTES # (AUTO) 1.2 (1.0-3.2); LYMPHOCYTES % 20.1 % (18.0-39.1); MEAN CORPUSCULAR HEMOGLOBIN 30.3 pg (28-32); MEAN CORPUSCULAR HGB CONC 30.6 g/dL (31-35); MONOCYTES # (AUTO) 0.2 (0.2-0.8); MONOCYTES % 3.2 % (4.4-11.3); NEUTROPHILS # (AUTO) 4.4 (2.1-6.9); NEUTROPHILS % 73.5 % (38.7-80.0); PLATELET COUNT 49 x10e3/uL (140-360); RED BLOOD COUNT 4.36 x10e6/uL (3.6-5.1); RED CELL DISTRIBUTION WIDTH 16.1 % (11.7-14.4); WHITE BLOOD COUNT 5.92 x10e3/uL (4.8-10.8)
[2024-10-19 06:50] LABS: MEAN CORPUSCULAR VOLUME 99.1 fL (81-99)
[2024-10-19 07:05] LABS: CALCIUM 8.9 mg/dL (8.4-10.2); POTASSIUM 3.8 mmol/L (3.5-5.1)
[2024-10-19 07:15] LABS: ANION GAP 17.8 mmol/L (8-16); CREATININE, SERUM 0.84 mg/dL (0.57-1.11)
[2024-10-19] MEDS: SODIUM BICARBONATE 8.4% INJ 50 ML SYR IV ONE (15:30)
[2024-10-19 16:29] LABS: ANION GAP 12.5 mmol/L (8-16); CALCIUM 8.5 mg/dL (8.4-10.2); CREATININE, SERUM 0.9 mg/dL (0.57-1.11); POTASSIUM 3.5 mmol/L (3.5-5.1)
[2024-10-19] MEDS: POTASSIUM CHLORIDE 20 MEQ TAB CR PO ONE (19:28)
[2024-10-20] VITALS (12 sets, daily range): BP systolic 97–138; BP diastolic 65–76; PULSE 68–86; RESP 13–25; TEMP 97.8–98.2; O2SAT 97–100
[2024-10-20 06:08] LABS: ABG HCO3 25 mmol/L (22-26); ABG PCO2 35 mmHg (35-45); ABG PH 7.46 (7.35-7.45); ABG PO2 21 mmHg (80-105); ABG TCO2 26
[2024-10-20 06:52] LABS: BASOPHILS % 0.4 % (0.0-1.0); EOSINOPHILS # (AUTO) 0.1 (0.0-0.4); EOSINOPHILS % 1.8 % (0.0-6.0); HEMATOCRIT 35.6 % (34.2-44.1); HEMOGLOBIN 11.7 g/dL (12.0-16.0); LYMPHOCYTES # (AUTO) 1.1 (1.0-3.2); LYMPHOCYTES % 19.4 % (18.0-39.1); MEAN CORPUSCULAR HGB CONC 32.9 g/dL (31-35); MEAN CORPUSCULAR VOLUME 94.2 fL (81-99); MONOCYTES # (AUTO) 0.2 (0.2-0.8); MONOCYTES % 2.8 % (4.4-11.3); NEUTROPHILS # (AUTO) 4.1 (2.1-6.9); RED BLOOD COUNT 3.78 x10e6/uL (3.6-5.1); RED CELL DISTRIBUTION WIDTH 15.8 % (11.7-14.4); WHITE BLOOD COUNT 5.42 x10e3/uL (4.8-10.8)
[2024-10-20 07:04] LABS: PLATELET COUNT 36 x10e3/uL (140-360)
[2024-10-20 07:17] LABS: ALBUMIN 2.5 g/dL (3.5-5.0); ANION GAP 14.5 mmol/L (8-16); BILIRUBIN,TOTAL 1.1 mg/dL (0.2-1.2); CALCIUM 8.9 mg/dL (8.4-10.2); CREATININE, SERUM 0.78 mg/dL (0.57-1.11); POTASSIUM 3.5 mmol/L (3.5-5.1); TOTAL PROTEIN 5.1 g/dL (6.5-8.1)
[2024-10-20 15:11] LABS: INR 0.98; PROTHROMBIN TIME 13.6 seconds (11.9-14.5)
[2024-10-20 15:58] LABS: FOLATE 0.8 ng/mL (7.0-15.4)
[2024-10-20] MEDS: SODIUM BICARBONATE 650 MG TAB PO SCH (16:44)
[2024-10-21] VITALS (36 sets, daily range): BP systolic 93–139; BP diastolic 62–98; PULSE 70–102; RESP 13–28; TEMP 97.7–98.6; O2SAT 89–100
[2024-10-21 06:45] LABS: BASOPHILS % 0.4 % (0.0-1.0); EOSINOPHILS # (AUTO) 0.1 (0.0-0.4); EOSINOPHILS % 2.1 % (0.0-6.0); HEMATOCRIT 33.3 % (34.2-44.1); HEMOGLOBIN 10.8 g/dL (12.0-16.0); LYMPHOCYTES % 20.9 % (18.0-39.1); MEAN CORPUSCULAR HEMOGLOBIN 29.8 pg (28-32); MEAN CORPUSCULAR HGB CONC 32.4 g/dL (31-35); MONOCYTES # (AUTO) 0.2 (0.2-0.8); MONOCYTES % 4.2 % (4.4-11.3); NEUTROPHILS # (AUTO) 3.4 (2.1-6.9); PLATELET COUNT 42 x10e3/uL (140-360); RED BLOOD COUNT 3.62 x10e6/uL (3.6-5.1); RED CELL DISTRIBUTION WIDTH 15.6 % (11.7-14.4); WHITE BLOOD COUNT 4.78 x10e3/uL (4.8-10.8)
[2024-10-21 07:18] LABS: ALBUMIN 2.6 g/dL (3.5-5.0); ALBUMIN/GLOBULIN RATIO 1.1 (0.8-2.0); ANION GAP 11.5 mmol/L (8-16); BILIRUBIN,TOTAL 0.9 mg/dL (0.2-1.2); CALCIUM 8.7 mg/dL (8.4-10.2); CREATININE, SERUM 0.8 mg/dL (0.57-1.11); POTASSIUM 3.5 mmol/L (3.5-5.1)
[2024-10-21] MEDS: FOLIC ACID 1 MG TAB PO SCH (08:19)
[2024-10-22] VITALS (49 sets, daily range): BP systolic 91–129; BP diastolic 58–83; PULSE 70–97; RESP 6–22; TEMP 97.1–98; O2SAT 95–100
[2024-10-22 12:28] LABS: HEPATITIS B CORE IGM (P) Negative; HEPATITIS B SURFACE AG (P) Negative; HEPATITIS C ANTIBODY Non Reactive
[2024-10-22 12:29] LABS: HEPATITIS A ANTIBODY IGM (P) Negative
[2024-10-22 14:34] LABS: BASOPHILS % 0.5 % (0.0-1.0); EOSINOPHILS # (AUTO) 0.1 (0.0-0.4); EOSINOPHILS % 1.9 % (0.0-6.0); HEMATOCRIT 36.3 % (34.2-44.1); HEMOGLOBIN 11.4 g/dL (12.0-16.0); LYMPHOCYTES # (AUTO) 1.4 (1.0-3.2); LYMPHOCYTES % 32.9 % (18.0-39.1); MEAN CORPUSCULAR HEMOGLOBIN 30.2 pg (28-32); MEAN CORPUSCULAR HGB CONC 31.4 g/dL (31-35); MEAN CORPUSCULAR VOLUME 96.3 fL (81-99); MONOCYTES # (AUTO) 0.3 (0.2-0.8); NEUTROPHILS # (AUTO) 2.4 (2.1-6.9); RED BLOOD COUNT 3.77 x10e6/uL (3.6-5.1); RED CELL DISTRIBUTION WIDTH 15.1 % (11.7-14.4); WHITE BLOOD COUNT 4.16 x10e3/uL (4.8-10.8)
[2024-10-22 14:42] LABS: PLATELET COUNT 44 x10e3/uL (140-360)
[2024-10-22 15:00] LABS: ANION GAP 15.1 mmol/L (8-16); CALCIUM 9.3 mg/dL (8.4-10.2); CREATININE, SERUM 0.83 mg/dL (0.57-1.11)
[2024-10-22 15:01] LABS: POTASSIUM 3.1 mmol/L (3.5-5.1)
[2024-10-22] MEDS: POTASSIUM CHLORIDE 20 MEQ TAB CR PO ONE (17:12)
[2024-10-23] VITALS (12 sets, daily range): BP systolic 102–128; BP diastolic 66–78; PULSE 72–91; RESP 11–18; TEMP 97.1–97.8; O2SAT 97–100
[2024-10-23 08:13] LABS: BASOPHILS % 0.5 % (0.0-1.0); EOSINOPHILS # (AUTO) 0.1 (0.0-0.4); EOSINOPHILS % 1.9 % (0.0-6.0); HEMATOCRIT 32.2 % (34.2-44.1); HEMOGLOBIN 10.1 g/dL (12.0-16.0); LYMPHOCYTES % 27.1 % (18.0-39.1); MEAN CORPUSCULAR HEMOGLOBIN 30.1 pg (28-32); MEAN CORPUSCULAR HGB CONC 31.4 g/dL (31-35); MEAN CORPUSCULAR VOLUME 95.8 fL (81-99); MONOCYTES # (AUTO) 0.4 (0.2-0.8); MONOCYTES % 9.9 % (4.4-11.3); NEUTROPHILS # (AUTO) 2.2 (2.1-6.9); NEUTROPHILS % 59.8 % (38.7-80.0); RED BLOOD COUNT 3.36 x10e6/uL (3.6-5.1); RED CELL DISTRIBUTION WIDTH 15.1 % (11.7-14.4); WHITE BLOOD COUNT 3.73 x10e3/uL (4.8-10.8)
[2024-10-23 08:23] LABS: ANION GAP 13.4 mmol/L (8-16); CALCIUM 8.7 mg/dL (8.4-10.2); CREATININE, SERUM 0.78 mg/dL (0.57-1.11)
[2024-10-23 08:30] LABS: POTASSIUM 3.4 mmol/L (3.5-5.1)
[2024-10-23 08:31] LABS: PLATELET COUNT 43 x10e3/uL (140-360)
[2024-10-24] VITALS (11 sets, daily range): BP systolic 94–116; BP diastolic 47–77; PULSE 71–104; RESP 16–22; TEMP 97.3–97.8; O2SAT 97–100
[2024-10-24 06:50] LABS: HEMATOCRIT 33.6 % (34.2-44.1); HEMOGLOBIN 10.4 g/dL (12.0-16.0); MEAN CORPUSCULAR HEMOGLOBIN 30.1 pg (28-32); MEAN CORPUSCULAR VOLUME 97.4 fL (81-99); RED BLOOD COUNT 3.45 x10e6/uL (3.6-5.1); RED CELL DISTRIBUTION WIDTH 15.3 % (11.7-14.4)
[2024-10-24 07:12] LABS: PLATELET COUNT 41 x10e3/uL (140-360)
[2024-10-24 11:00] LABS: EOSINOPHILS % (MANUAL) 2 % (0-7); LYMPHOCYTES % (MANUAL) 33 % (19-48); MONOCYTES % (MANUAL) 10 % (3.4-9.0); NEUTROPHILS % (MANUAL) 55 % (40-74)
[2024-10-24 11:01] LABS: PLATELET ESTIMATE MARKEDLY DECREASED; PLATELET MORPHOLOGY COMMENT NORMAL
[2024-10-24] MEDS: SODIUM CHLORIDE 0.9% 250ML 250 ML ONE (12:20)
[2024-10-24] MEDS: SODIUM CHLORIDE 0.9% 500ML 500 ML IV ONE (13:46)
[2024-10-24] MEDS: SODIUM CHLORIDE 0.9% 1000ML 1,000 ML IV SCH (13:49)
[2024-10-24] MEDS ORDERED: BISACODYL 10 MG SUPP PR PRN (14:00)
[2024-10-24] MEDS: CITRATE OF MAGNESIA 300ML BOTTLE PO ONE (14:12)
[2024-10-24] MEDS: DOCUSATE SODIUM 100 MG CAP PO SCH (16:31)
[2024-10-24] MEDS: ACETAMINOPHEN 325 MG TAB PO PRN (18:30)
[2024-10-25] VITALS (8 sets, daily range): BP systolic 91–121; BP diastolic 49–74; PULSE 80–97; RESP 16–19; TEMP 97.5–98.1; O2SAT 95–100
[2024-10-25 06:13] LABS: BASOPHILS % 0.5 % (0.0-1.0); EOSINOPHILS # (AUTO) 0.1 (0.0-0.4); EOSINOPHILS % 1.4 % (0.0-6.0); HEMOGLOBIN 8.7 g/dL (12.0-16.0); LYMPHOCYTES # (AUTO) 1.3 (1.0-3.2); LYMPHOCYTES % 31.7 % (18.0-39.1); MEAN CORPUSCULAR HEMOGLOBIN 30.3 pg (28-32); MEAN CORPUSCULAR HGB CONC 33.5 g/dL (31-35); MEAN CORPUSCULAR VOLUME 90.6 fL (81-99); MONOCYTES # (AUTO) 0.4 (0.2-0.8); MONOCYTES % 10.6 % (4.4-11.3); NEUTROPHILS # (AUTO) 2.3 (2.1-6.9); NEUTROPHILS % 54.4 % (38.7-80.0); PLATELET COUNT 55 x10e3/uL (140-360); RED BLOOD COUNT 2.87 x10e6/uL (3.6-5.1); RED CELL DISTRIBUTION WIDTH 14.9 % (11.7-14.4); WHITE BLOOD COUNT 4.16 x10e3/uL (4.8-10.8)
[2024-10-25 06:50] LABS: ANION GAP 12.1 mmol/L (8-16); CALCIUM 8.7 mg/dL (8.4-10.2); CREATININE, SERUM 0.78 mg/dL (0.57-1.11)
[2024-10-25 06:51] LABS: POTASSIUM 3.1 mmol/L (3.5-5.1)
[2024-10-25] MEDS: POTASSIUM CHLORIDE 20 MEQ TAB CR PO PRN (09:49)
[2024-10-25] MEDS: SODIUM CHLORIDE 0.9% 1000ML 1,000 ML IV ONE (15:10)
[2024-10-26] VITALS (8 sets, daily range): BP systolic 93–124; BP diastolic 56–72; PULSE 79–100; RESP 18–19; TEMP 97.6–98.4; O2SAT 97–100
[2024-10-26 06:59] LABS: BASOPHILS % 0.5 % (0.0-1.0); EOSINOPHILS # (AUTO) 0.1 (0.0-0.4); EOSINOPHILS % 1.9 % (0.0-6.0); HEMATOCRIT 28.7 % (34.2-44.1); HEMOGLOBIN 8.7 g/dL (12.0-16.0); LYMPHOCYTES # (AUTO) 1.2 (1.0-3.2); LYMPHOCYTES % 28.2 % (18.0-39.1); MEAN CORPUSCULAR HEMOGLOBIN 30.1 pg (28-32); MEAN CORPUSCULAR HGB CONC 30.3 g/dL (31-35); MEAN CORPUSCULAR VOLUME 99.3 fL (81-99); MONOCYTES # (AUTO) 0.4 (0.2-0.8); MONOCYTES % 9.7 % (4.4-11.3); NEUTROPHILS # (AUTO) 2.5 (2.1-6.9); NEUTROPHILS % 58.8 % (38.7-80.0); PLATELET COUNT 71 x10e3/uL (140-360); RED BLOOD COUNT 2.89 x10e6/uL (3.6-5.1); RED CELL DISTRIBUTION WIDTH 15.6 % (11.7-14.4); WHITE BLOOD COUNT 4.22 x10e3/uL (4.8-10.8)
[2024-10-26 07:20] LABS: ANION GAP 10.5 mmol/L (8-16); CALCIUM 8.5 mg/dL (8.4-10.2); CREATININE, SERUM 0.74 mg/dL (0.57-1.11); POTASSIUM 3.5 mmol/L (3.5-5.1)
[2024-10-26] MEDS: SODIUM CHLORIDE 0.9% 1000ML 1,000 ML IV ONE (16:05)
[2024-10-27] VITALS (8 sets, daily range): BP systolic 114–132; BP diastolic 70–83; PULSE 79–106; RESP 18–20; TEMP 97.5–98.3; O2SAT 95–100
[2024-10-27 07:16] LABS: BASOPHILS % 0.5 % (0.0-1.0); EOSINOPHILS # (AUTO) 0.1 (0.0-0.4); EOSINOPHILS % 1.8 % (0.0-6.0); HEMATOCRIT 27.3 % (34.2-44.1); HEMOGLOBIN 8.8 g/dL (12.0-16.0); LYMPHOCYTES # (AUTO) 1.2 (1.0-3.2); LYMPHOCYTES % 32.5 % (18.0-39.1); MEAN CORPUSCULAR HEMOGLOBIN 30.8 pg (28-32); MEAN CORPUSCULAR HGB CONC 32.2 g/dL (31-35); MEAN CORPUSCULAR VOLUME 95.5 fL (81-99); MONOCYTES # (AUTO) 0.4 (0.2-0.8); MONOCYTES % 9.2 % (4.4-11.3); NEUTROPHILS # (AUTO) 2.1 (2.1-6.9); NEUTROPHILS % 55.2 % (38.7-80.0); PLATELET COUNT 86 x10e3/uL (140-360); RED BLOOD COUNT 2.86 x10e6/uL (3.6-5.1); RED CELL DISTRIBUTION WIDTH 16.4 % (11.7-14.4); WHITE BLOOD COUNT 3.81 x10e3/uL (4.8-10.8)
[2024-10-27 07:33] LABS: ANION GAP 11.6 mmol/L (8-16); CALCIUM 8.3 mg/dL (8.4-10.2); CREATININE, SERUM 0.72 mg/dL (0.57-1.11); POTASSIUM 3.6 mmol/L (3.5-5.1)
[2024-10-27] MEDS: SODIUM CHLORIDE 0.9% 1000ML 1,000 ML IV ONE (10:01)
== END 2024-10-27 18:42 | DRG 871 ==
LOC: ER 13:53 → ERHOLD 16:35 → ICU 17:31 → MED/SURG3 10-23 12:20
PROVIDERS: ADMIT Internal Medicine; ATTEND Internal Medicine
PROC: 4A133R1 Monitoring of Arterial Saturation, Peripheral, Percutaneous Approach (ICD-10-PCS; principal; 2024-10-14)
PROC: 3E0333Z Introduction of Anti-inflammatory into Peripheral Vein, Percutaneous Approach (ICD-10-PCS; 2024-10-14)
PROC: 06HY33Z Insertion of Infusion Device into Lower Vein, Percutaneous Approach (ICD-10-PCS; 2024-10-14)
DX: A41.51 Sepsis due to Escherichia coli [E. coli] (principal); G93.41 Metabolic encephalopathy; I21.A1 Myocardial infarction type 2; R65.21 Severe sepsis with septic shock; E87.20 Acidosis, unspecified; E87.0 Hyperosmolality and hypernatremia; N17.9 Acute kidney failure, unspecified; Z68.1 Body mass index [BMI] 19.9 or less, adult; N13.6 Pyonephrosis; D61.818 Other pancytopenia; R62.7 Adult failure to thrive; L89.152 Pressure ulcer of sacral region, stage 2; I10 Essential (primary) hypertension; E78.5 Hyperlipidemia, unspecified; Z11.52 Encounter for screening for COVID-19; E86.0 Dehydration; E87.6 Hypokalemia; E83.52 Hypercalcemia; E86.1 Hypovolemia; F03.90 Unspecified dementia, unspecified severity, without behavioral disturbance, psychotic disturbance, mood disturbance, and anxiety; R91.8 Other nonspecific abnormal finding of lung field; K76.0 Fatty (change of) liver, not elsewhere classified; B96.4 Proteus (mirabilis) (morganii) as the cause of diseases classified elsewhere; B95.5 Unspecified streptococcus as the cause of diseases classified elsewhere; E53.8 Deficiency of other specified B group vitamins; Z87.440 Personal history of urinary (tract) infections; Z88.2 Allergy status to sulfonamides; Z88.1 Allergy status to other antibiotic agents; Z82.49 Family history of ischemic heart disease and other diseases of the circulatory system
CPT/HCPCS: 36415; 36556; 36568; 51700; 70450; 71045; 71250; 72125; 74018; 74176; 76770; 80048; 80053; 80061; 81001; 82140; 82550; 82607; 82728; 82746; 82805; 82948; 83540; 83605; 83615; 83690; 83735; 83880; 84466; 84484; 85007; 85025; 85027; 85045; 85610; 85730; 86022; 87040; 87086; 87186; 93005; 94799; 99252; 99284; J0696; J1650; J2185; J2470; J3480; J7030; J7040; J7050; J7070